=== PATIENT | female | born 1965 | race Caucasian/White ===

== ENCOUNTER 2022-07-16 13:44 | Emergency (ER) | payer OTHER, SELFPAY ==
[2022-07-16 14:10] VITALS: BP 128/57; PULSE 99; RESP 22; TEMP 36.8; O2SAT 96; BMI 28.7
[2022-07-16 14:33] LABS: UTC Strep Screen (Rapid) Negative (Negative)
--- NOTE | 2022-07-16 14:51 | EXP.UTC ---
Discharge Plan Disposition Patient Disposition: Home, Self-Care Condition: Good Prescriptions Prescriptions: New cefdinir 300 mg capsule 300 mg PO BID 7 Days Qty: 14 0RF [id number] [Bromfed DM] 2-30-10 mg/5 mL syrup 10 ml PO Q6H PRN (Reason: cold symptoms) Qty: 118 0RF Referrals Follow up/Referrals: Amy Pavon APRN [Primary Care Provider] - See instructions Clinical Impressions Clinical Impression: Upper respiratory tract infection Instructions Patient Instructions: DI for Viral Upper Respiratory Infection -- Adult, DI for Sinusitis Discharge ED Provider: Patience Manzo [facility] [place] HPI General Stated complaint: drainage,headache,cough Mode of Arrival: Ambulatory Source of Information: Patient Limitations: No Limitations Time Seen by Provider: 07/16/22 14:33 Description of Symptoms (Recalled from Triage Doc. by RN): coughing, drainage, sore throat, JIMENEZ HEENT Symptoms (Recalled from RN notes): Yes Resp Symptoms (Recalled from RN notes): No Skin Symptoms (Recalled from RN notes): No MS Symptoms (Recalled from RN notes): No Functional Status (Recalled from RN notes): n/a History of Present Illness Provider Complaint: Pt states that for the last 2 weeks she has been struggling with runny nose and cough. She states that her throat has become very sore since yesterday. She states that her sinus drainage has turned green from the right nare and she has sinus pain right maxillary sinus Related Data Previous Rx's Medication Instructions Recorded [id number]-ybiqcedbstulzhf-[id number] 10 ml PO Q6H PRN cold symptoms 07/16/22 2 mg-30 mg-10 mg/5 mL oral syrup #118 mL (Bromfed DM) cefdinir 300 mg capsule 300 mg PO BID 7 days #14 caps 07/16/22 Allergies Allergy/AdvReac Type Severity Reaction Status Date / Time codeine Allergy Verified 07/16/22 14:33 Iodinated Contrast Media Allergy Verified 07/16/22 14:33 Penicillins Allergy Verified 07/16/22 14:33 Worker's Comp Is this a Worker's Comp case?: No [facility] Disclaimer: The information contained in this section may have been updated after the patient was seen, as this information can be updated by other users. Social History Smoking Status: Current every day smoker alcohol intake: current current occupational status: unemployed Travel in the last 8 weeks: None ROS Obtained: Yes All systems reviewed & no additional complaints except as documented Constitutional Constitutional: Reports as per HPI, Reports headache(s) and Reports malaise Eyes Eyes: Reports system reviewed and no additional complaints, except as documented ENT Ears, Nose, Mouth, and Throat: Reports as per HPI, Reports headache(s), Reports nasal congestion, Reports nasal discharge, Reports odynophagia, Reports sinus pain and Reports sinus pressure Cardiovascular Cardiovascular: Reports system reviewed and no additional complaints, except as documented Respiratory Respiratory: Reports system reviewed and no additional complaints, except as documented and Reports non-productive cough Gastrointestinal Gastrointestingal: Reports system reviewed and no additional complaints, except as documented and odynophagia Genitourinary Female Genitourinary: Reports system reviewed and no additional complaints, except as documented Musculoskeletal Musculoskeletal: Reports system reviewed and no additional complaints, except as documented Integumentary/Breasts Skin/Breast: Reports system reviewed and no additional complaints, except as documented Neurologic Neurologic: Reports system reviewed and no additional complaints, except as documented and Reports headache(s) Endocrine Endocrine: Reports system reviewed and no additional complaints, except as documented Hematologic/Lymphatic Henatologic/Lymphatic: Reports system reviewed and no additional complaints, except as documented Allergic/Immunologic Allergic/Immunologic: Reports system reviewed and no additional complai
[2022-07-16 15:09] VITALS: BP 120/57; PULSE 99; RESP 20; TEMP 36.8; O2SAT 96
== END 2022-07-16 15:05 | disposition home or self-care (01) ==
PROVIDERS: Emergency Provider Nurse Practitioner Family; PCP Nurse Practitioner Family
DX: J06.9 Acute upper respiratory infection, unspecified (principal)
CPT/HCPCS: 87880; 99212; 99213; G0463